=== PATIENT | male | born 1995 ===

== ENCOUNTER 2020-12-08 10:31 | Emergency (ER) | payer OTHER ==
[~2020-12-08] VITALS: Ht 182.9 cm; Wt 74.9 kg
[2020-12-08 12:54] LABS: BASOPHILS % (AUTO) 1 % (0-1); EOSINOPHILS % (AUTO) 2 % (1-7); LYMPHOCYTES % (AUTO) 28 % (22-44); MEAN CORPUSCULAR HGB CONC 33.9 g/dL (33.2-36.2); MEAN PLATELET VOLUME 7.6 fL (7.4-10.4); MONOCYTES % (AUTO) 10 % (2-9); NEUTROPHILS % (AUTO) 59 % (42-75); PLATELET COUNT 220 x10^3/uL (130-400); RED BLOOD COUNT 5.34 x10^6/uL (4.38-5.82); RED CELL DISTRIBUTION WIDTH 13.7 % (9.4-14.8)
[2020-12-08 12:59] LABS: ALBUMIN 4.4 g/dL (3.4-5.0); ANION GAP 5 mmol/L (5-15); CALCIUM 9.1 mg/dL (8.5-10.1); CHLORIDE 105 mmol/L (98-107); CREATININE 0.82 mg/dL (0.7-1.3)
[2020-12-08 16:36] VITALS: BP 123/87
--- NOTE | 2020-12-08 16:38 | NUR ---
PT DC'D FROM [place]. DR. POWERS DISCUSSED POC WITH PT AND PT'S FRIEND. PT VERBALIZED UNDERSTANDING. AMBULATORY TO CHECKOUT C STEADY GAIT. VSS.
== END 2020-12-08 16:40 | disposition home or self-care (01) ==
LOC: ED 16:34
DX: R42 Dizziness and giddiness (principal); R11.0 Nausea; R51.9 Headache, unspecified
CPT/HCPCS: 36415; 71045; 80048; 82040; 85025; 93005; 99285